=== PATIENT | female | born 1980 ===

== ENCOUNTER 2023-02-14 11:53 | Outpatient (AMB) | payer OTHER, SELFPAY ==
--- NOTE | 2023-02-14 13:24 | MHC.OFFWIV ---
Intake Vital Signs 02/14/23 13:25 Height 5 ft 7 in Weight 191 lb BMI 29.9 BP 120/76 Blood Pressure Location Rt brachial Position Sitting Pulse 94 Pulse Source Pulse Oximeter Temp 98.6 F Temp Source Oral Pulse Oximetry (%) 98 Oxygen Delivery Method Room Air Intake Visit Reasons: EST/headache/cough (lobby masked) Intake Note: pt ia here today for headache and cough started overnight, and headache. Patient Tobacco Use Status: Never used Tobacco Patient : Yes (5 months) Allergies No Known Allergies Allergy (Verified 02/14/23 13:25) Do you need a note to return to daycare/school/sports/work: Yes HPI EST/headache/cough (lobby masked) HPI Details This is a 42 year old female patient who presents today with a 1 day history of headache, cough, and bodyaches. She denies fever. Reports one of her children has similar symptoms. She is currently 22 weeks . [facility] Social History Patient Tobacco Use Status: Never used Tobacco Review of Systems Const All systems reviewed & are unremarkable except as noted in HPI and below Physical Exam Vital Signs: Last Vital Signs Temp 98.6 F 02/14/23 13:25 Pulse 94 02/14/23 13:25 BP 120/76 02/14/23 13:25 Pulse Ox 98 02/14/23 13:25 Oxygen Delivery Method Room Air 02/14/23 13:25 BMI result Body Mass Index 29.9 Const General: cooperative, healthy appearing and no acute distress HEENT Head: Yes normal to inspection Ears: hearing grossly normal bilaterally General nose exam: Normal external nose present and Normal nares present Mouth: Normal oral and palatal mucosa present and moist mucous membranes Throat: Yes posterior oropharynx abnormal (mild erythema) Resp Effort & Inspection: normal respiratory effort and able to speak in complete sentences Auscultation: clear to auscultation bilaterally Cardio Jugular venous distension: no JVD Palpation: normal PMI Rate: regular rate Rhythm: regular rhythm GI Other: gravid Skin General skin exam: no rashes or lesions noted Extrem General: Yes capillary refill normal and Yes no clubbing, cyanosis or edema Psych Appearance: grossly normal Mental Status: mental status grossly normal Speech and movement: Normal speech and movement present Assessment & Plan Assessment & Plan (1) Upper respiratory infection: Code(s): J06.9 - Acute upper respiratory infection, unspecified Qualifiers: URI type: unspecified viral URI Qualified Code(s): J06.9 - Acute upper respiratory infection, unspecified Plan: Symptoms consistent with evolving viral URI. Cov/Flu/RSV swab obtained. I advised conservative measures with rest, hydration, Tylenol as needed for myalgias. Patient is and cannot take NSAIDs and most otc cold/flu medication. Work note provided and patient advised to follow up if she does not improve with time and conservative measures or if new symptoms develop. She agrees to plan. Orders: Orders SARS-CoV2/FLU/RSV Today J06.9 - Acute upper respiratory infection, unspecified Coding Level of Care Code Est Pt Level 3 (62777) Diagnoses Viral upper respiratory tract infection J06.9 URI type: unspecified viral URI
[2023-02-14 13:25] VITALS: BP 120/76; PULSE 94; TEMP 37; O2SAT 98; BMI 29.9
== END 2023-02-14 14:24 | disposition home or self-care (01) ==
PROVIDERS: Visit Provider Nurse Practitioner Family
DX: J06.9 Acute upper respiratory infection, unspecified (principal)
CPT/HCPCS: 99213

== ENCOUNTER 2023-02-14 14:05 | Outpatient (REF) | payer OTHER, SELFPAY ==
[2023-02-14 18:04] LABS: Influenza A PCR POSITIVE (Negative); Influenza B PCR NEGATIVE (Negative); Resp Syncy Virus RNA Qual PCR NEGATIVE (Negative); SARS COV2 PCR INHOUSE NEGATIVE (Negative)
== END 2023-02-14 14:06 | disposition home or self-care (01) ==
LOC: HO.LAB 14:05
PROVIDERS: Visit Provider Nurse Practitioner Family
DX: Z11.52 Encounter for screening for COVID-19 (principal); J06.9 Acute upper respiratory infection, unspecified
CPT/HCPCS: 0241U